=== PATIENT | male | born 1945 | race Caucasian/White ===

== ENCOUNTER 2016-12-10 10:44 | Emergency (ER) | payer MEDICARE, OTHER ==
[~2016-12-10] VITALS: Ht 182.9 cm; Wt 110.9 kg
[2016-12-10 10:50] VITALS: BP 123/85; PULSE 101; RESP 18; O2SAT 96
--- NOTE | 2016-12-10 11:16 | ED.REPORT ---
HPI-General Illness Date of Service Dec 10, 2016 ED Provider: Huseyin Vivar MD Patient is a 71 year old male with a history of diabetes, peripheral vascular disease and hypertension who presents to the ED due to hyperglycemia. Associated symptoms include nausea with food, fatigue, lethargy and decreased appetite. He denies vomiting. The patient reports that he has not been regularly testing his levels. He also states that he has been drinking multiple Gatorades a day for the past week. The patient was seen earlier today at , where they were unable to get a reading on his high blood glucose level. Nursing Notes Stated Complaint: BLOOD SUGAR HIGH Chief Complaint: General Complaint Nursing Notes Reviewed: Yes Allergies: Coded Allergies: No Known Allergies (Unverified , 12/10/16) General Time Seen by MD: 11:09 Chief Complaint Other (hyperglycemia) Hx Obtained From: Patient Arrived By: Walk-in Sudden in Onset?: Yes Onset Occurred: Just prior to arrival Symptom Duration: Since onset Recent Healthcare: No recent hospitalization, Recent doctor visit Past Medical History Past Medical History Reports: Diabetes mellitus, Hypertension Past Surgical History right knee left mastoidectomy Smoking History Former Smoker (quit 2004) Ambulatory Status Independent Review of Systems +hyperglycemia +decreased appetite Full Review of Systems Constitutional: Reports: Fatigue, Lethargy, Denies: Chills, Fever Respiratory: Denies: Non-productive cough, Shortness of breath GI: Reports: Nausea, Denies: Diarrhea, Vomiting Skin: Denies Itching, Denies Rash Complete sys rev & neg: except as marked. Physical Exam Vital Signs Vital Signs Date Time Temp Pulse Resp B/P Pulse Ox O2 Delivery O2 Flow Rate FiO2 12/10/16 13:03 36.6 86 20 128/91 98 Room Air 12/10/16 10:50 35.8 101 18 123/85 96 Initial VS: Reviewed General/Constitutional: Awake, Alert, No acute distress Head / Eyes: Atraumatic, Normocephalic, PERRL, EOMI Respiratory / Chest: Atraumatic, Breath sounds NL, Breath sounds = bilat, No respiratory distress Cardiovascular: Heart rate NL, Regular rhythm, Heart sounds NL Abdomen: Atraumatic, Soft, Non-tender Upper Extremities Upper Extremity / MS: Atraumatic, Full range of motion Lower Extremity / Pelvis / MS: Atraumatic, Full range of motion Skin: Atraumatic, Color NL, No rash, Warm, Dry Neurologic: Oriented X3, Speech NL, No motor deficits, No sensory deficits Psychiatric: Affect NL, Mood NL Interpretation & Diagnostics Lab Results Interpretation Result Diagram: 12/10/16 1109 12/10/16 1545 Test 12/10/16 11:09 12/10/16 13:03 12/10/16 15:30 12/10/16 15:45 White Blood Count 9.0th/mm3 (3.8-10.1) Red Blood Count 5.16mil/mm3 (4.40-5.80) Hemoglobin 15.5g/dL (13.8-17.2) Hematocrit 44.6% (41.0-50.0) Mean Corpuscular Volume 86.4fL (81-100) Mean Corpuscular Hemoglobin 30.0pg (27.0-35.0) Mean Corpuscular Hemoglobin Concent 34.8% (32.0-37.0) Red Cell Distribution Width 12.6% (12.3-15.4) Platelet Count 299bil/L (150-400) Neutrophils (%) (Auto) 64.3% (40-74) Lymphocytes (%) (Auto) 24.3% (14-46) Monocytes (%) (Auto) 7.7% (4-12) Eosinophils (%) (Auto) 3.1% (0-5) Basophils (%) (Auto) 0.3% (0-3) Hold Blue Top Tube Received (Received) Total Bilirubin 0.7mg/dL (0.0-1.2) Aspartate Amino Transf (AST/SGOT) 13U/L (0-50) Alanine Aminotransferase (ALT/SGPT) 15U/L (0-44) Alkaline Phosphatase 88U/L (25-160) Total Protein 8.1g/dL (6.4-8.4) Albumin 4.2g/dL (3.4-5.0) Hold [place] Top Tube Received (Received) Hold Urine Received (Received) Hold Red Top Tube Received (Received) Hold [place] Top Tube Received (Received) Sodium Level 133mEq/L (134-144) Potassium Level 3.8mEq/L (3.5-5.2) Chloride Level 93mEq/L (97-108) Carbon Dioxide Level 22mmol/L (18-29) Blood Urea Nitrogen 31mg/dL (8-27) Creatinine 1.24mg/dL (0.76-1.27) Estimat Glomerular Filtration Rate 61mL/min (>59) Glucose Level 513mg/dL (60-99) Calcium Level 9.5mg/dL (8.5-10.1) Re-Eval/Medical Decision Time of Eval: 12:37 Re-Evaluation/Progress Note: Discussed blood sugar level and further examined patient. Time of Eval: 16:35 Re-Evaluation/Progress Note: Discussed labs and plan for discharge. Patient understands and agrees to the plan. All questions were addressed. Counseled Regarding: Diagnosis, Lab results, Need for follow-up, When/why to return to ED Discharge & Departure Primary Impression: Hyperglycemia Disposition: Home Discharge Condition All VS Reviewed: Yes Condition: Stable Patient Instructions: Diabetic Hyperglycemia (ED) Additional Instructions: Your blood sugar reading is still high but it has improved significantly. Take Glucophage 1000 in the morning thousand and 9500 noon. Add glyburide 5 mg daily. This can be dangerous if not carefully controlled. Follow up with Dr. Mckeon. You have an appointment at 1pm this . Return to the emergency department if you develop any new or concerning symptoms. Referrals: Nghia Mckeon MD (PCP) Scribe Attestation Portions of this note were transcribed by Dolly Richmond. I, Dr. Vivar personally performed the history, physical exam and medical decision-making; I reviewed and confirmed the accuracy of the information in the transcribed note. Signed by: Selina Ratliff, 12/10/16 and 1633 copies to: Nghia Mckeon MD, Kirk H MD Dec 10, 2016 11:16 Ruthy Richmond Dec 10, 2016 11:35
[2016-12-10 11:25] LABS: Mean Corpuscular Volume 86.4 fL (81-100)
[2016-12-10 11:26] LABS: BASOPHILS % (AUTO) 0.3 % (0-3); EOSINOPHILS % (AUTO) 3.1 % (0-5); MONOCYTES % (AUTO) 7.7 % (4-12); NEUTROPHILS % (AUTO) 64.3 % (40-74); Platelet Count 299 bil/L (150-400)
[2016-12-10] MEDS ORDERED: 0.9% Sodium Chloride 1,000 ML IV SCH (12:35)
[2016-12-10] MEDS ORDERED: (U-500) Insulin Regluar, Human 500 Unit/mL Syringe SUBQ ONE (12:35)
[2016-12-10 13:03] VITALS: BP 128/91; PULSE 86; RESP 20; O2SAT 98
[2016-12-10] MEDS ORDERED: GLBR5T PO (16:53)
[2016-12-10 17:13] VITALS: BP 120/91; PULSE 86; RESP 20; O2SAT 98
== END 2016-12-10 17:15 | disposition home or self-care (01) ==
LOC: SED 10:44
DX: E11.65 Type 2 diabetes mellitus with hyperglycemia (principal); I10 Essential (primary) hypertension; I73.9 Peripheral vascular disease, unspecified; Z87.891 Personal history of nicotine dependence
CPT/HCPCS: 36415; 80048; 80053; 82948; 85025; 96360; 96372; 99284; J1815; J7030